=== PATIENT | male | born 1985 | race Asian ===

== ENCOUNTER 2016-03-12 14:07 | Emergency (ER) | payer BC ==
[~2016-03-12] VITALS: Ht 170.2 cm; Wt 69.9 kg
[2016-03-12 14:16] VITALS: BP 143/84; PULSE 68; RESP 16; TEMP 97.8; O2SAT 98
--- NOTE | 2016-03-12 14:25 | NUR ---
Patient triaged and placed in waiting room. VSS and patient appears in no acute distress at this time. Accompanied by PARENTS, awaiting available bed, and MD notified of need for MSE.
[2016-03-12] MEDS ORDERED: DIPH-TET-PERTUS Vaccine 0.5 ML VIAL (ADACEL) IM ONE (15:15)
[2016-03-12] MEDS ORDERED: BACITRACIN 1 GM OINT TP ONE ×2 (15:15→16:39)
--- NOTE | 2016-03-12 15:25 | NUR ---
Patient to ER bed 5 to gown for evaluation. Side rails up. Report given to gloria alcala.
--- NOTE | 2016-03-12 15:30 | NUR ---
ER at bedside examining patient.
--- NOTE | 2016-03-12 15:32 | NUR ---
Pt brought by mother, A&Ox4, ambulatory , per pt he cut L index finger on scissors while attempting to get stuck zipper, no active bleeding noted, VS WNL.
[2016-03-12] MEDS ORDERED: LIDOCAINE 1% 10 MG/ML, 20 ML MDV IJ ONE (15:45)
[2016-03-12 16:51] VITALS: BP 121/70; PULSE 69; RESP 14; TEMP 97; O2SAT 99
== END 2016-03-12 16:51 | disposition home or self-care (01) ==
LOC: SED 14:07
DX: S61.211A Laceration without foreign body of left index finger without damage to nail, initial encounter (principal); R03.0 Elevated blood-pressure reading, without diagnosis of hypertension; W45.8XXA Other foreign body or object entering through skin, initial encounter; Y93.89 Activity, other specified; Y99.8 Other external cause status; Y92.89 Other specified places as the place of occurrence of the external cause
CPT/HCPCS: 12001; 90471; 90715; 99283; J2001

== ENCOUNTER 2016-03-23 19:38 | Emergency (ER) | payer BC ==
[~2016-03-23] VITALS: Ht 170.2 cm; Wt 69.9 kg
[2016-03-23 20:01] VITALS: BP 130/66; PULSE 76; RESP 14; TEMP 97.6; O2SAT 98
--- NOTE | 2016-03-23 20:03 | NUR ---
Patient to ER bed 1 to gown for evaluation. Side rails up. Report given to CELESTE NUÑEZ.
--- NOTE | 2016-03-23 20:05 | NUR ---
Pt ambulated to bed 1, stable gait. Pt presents to ED for suture removal to left 2nd finger. Pt injured finger trying to fix zipper with pair of scissors. Pt had sutures placed 11 days ago. Pt denies any pain or swelling at this time. Pt respirations even and unlabored. VSS. Will continue to monitor.
--- NOTE | 2016-03-23 20:10 | NUR ---
ER at bedside examining patient and for suture removal
[2016-03-23 20:33] VITALS: BP 124/71; PULSE 71; RESP 16; TEMP 98.1; O2SAT 99
--- NOTE | 2016-03-23 20:33 | NUR ---
Patient given written and verbal discharge instructions and verbalizes understanding. ER MD discussed with patient the results and treatment provided. Patient in stable condition. No Rx given. Patient educated on pain management and to follow up with PMD. Pain Scale 0/10. Opportunity for questions provided and answered.
== END 2016-03-23 20:33 | disposition home or self-care (01) ==
LOC: SED 19:38
DX: S61.211D Laceration without foreign body of left index finger without damage to nail, subsequent encounter (principal); W45.8XXD Other foreign body or object entering through skin, subsequent encounter
CPT/HCPCS: 99281